=== PATIENT | female | born 1995 | race Caucasian/White ===

== ENCOUNTER 2019-10-16 22:12 | Observation (INO) | payer SELFPAY ==
[~2019-10-16] VITALS: Ht 152.4 cm; Wt 45.4 kg
[2019-10-17 00:20] VITALS: BP 108/65
[2019-10-17] MEDS ORDERED: FERR325E14 PO (00:24)
[2019-10-17] MEDS ORDERED: OSC500 PO (00:24)
== END 2019-10-16 23:30 | disposition left against medical advice (07) ==
LOC: MLD 22:12
PROVIDERS: ADMIT Obstetrics & Gynecology; ATTEND Obstetrics & Gynecology
DX: O62.9 Abnormality of forces of labor, unspecified (principal); Z3A.38 38 weeks gestation of pregnancy
CPT/HCPCS: G0378

== ENCOUNTER 2019-10-21 22:26 | Inpatient (IN) | payer MEDICAID ==
[~2019-10-21] VITALS: Ht 157.5 cm; Wt 45.4 kg
[2019-10-21] MEDS: LACTATED RINGERS 1,000 ML IV SCH (00:19)
[~2019-10-21 22:26] MED LIST: FERR325E14 PO; OSC500 PO
[2019-10-21] MEDS ORDERED: MISOPROSTOL 25 MCG TAB VG SCH (23:10)
[2019-10-21] MEDS ORDERED: PROMETHAZINE 25 MG/ML VIAL IVP PRN (23:10)
[2019-10-21 23:58] LABS: BASOPHILS % (AUTO) 0.2 % (0.0-2.0); EOSINOPHILS # (AUTO) 0.1 K/uL (0-0.4); EOSINOPHILS % (AUTO) 0.9 % (0.0-4.0); HEMOGLOBIN 11.6 g/dL (12.0-16.0); LYMPHOCYTES # (AUTO) 1.2 K/uL (2.5-16.5); LYMPHOCYTES % (AUTO) 18.4 % (20.5-51.1); MEAN CORPUSCULAR HEMOGLOBIN 31 pg (27-31); MEAN CORPUSCULAR HGB CONC 33 g/dL (33-37); MEAN CORPUSCULAR VOLUME 92.9 fL (80-94); MONOCYTES # (AUTO) 0.5 K/uL (0.8-1.0); MONOCYTES % (AUTO) 7.2 % (1.7-9.3); NEUTROPHILS # (AUTO) 4.8 K/uL (1.8-7.7); NEUTROPHILS % (AUTO) 73.3 % (42.2-75.2); PLATELET COUNT (AUTO) 235 K/uL (140-450); RED BLOOD CELL COUNT(AUTO) 3.77 MIL/uL (4.20-5.40); RED CELL DISTRIBUTION WIDTH 14.1 % (11.6-13.7); WHITE BLOOD COUNT (AUTO) 6.5 K/uL (4.8-10.8)
[2019-10-22] MEDS ORDERED: AMPICILLIN 2,000 MG in NACL 0.9% 100 ML IV ONE (00:05)
[2019-10-22] MEDS ORDERED: AMPICILLIN 2,000 MG VIAL ONE (00:06)
[2019-10-22 00:14] LABS: ANION GAP 13.4 (8-16); CARBON DIOXIDE 27.4 mmol/L (21-32); CREATININE 0.6 mg/dL (0.6-1.3); POTASSIUM 3.8 mmol/L (3.5-5.1)
[2019-10-22 00:21] LABS: ALBUMIN 2.6 g/dL (3.4-5.0); TOTAL BILIRUBIN 0.2 mg/dL (0.0-1.0)
[2019-10-22 00:26] LABS: APPEARANCE,URINE SL CLOUDY (CLEAR); BILIRUBIN,URINE NEGATIVE (NEGATIVE); BLOOD, URINE NEGATIVE (NEGATIVE); COLOR,URINE YELLOW (YELLOW); LEUKOCYTE ESTERASE ,URINE 3+ (NEGATIVE); NITRITE, URINE NEGATIVE (NEGATIVE); UGLUCOSE NEGATIVE (NEGATIVE)
[2019-10-22] MEDS ORDERED: MISOPROSTOL 25 MCG TAB ONE (01:43)
[2019-10-22 01:44] LABS: RBC,URINE 0-5 /HPF (0-5)
[2019-10-22 01:45] LABS: WBC,URINE 20-60 /HPF (0-5)
[2019-10-22 01:51] VITALS: BP 114/60
[2019-10-22] MEDS ORDERED: fentaNYL 0.05 MG/ML VIAL ONE ×2 (03:42→05:43)
[2019-10-22] MEDS ORDERED: AMPICILLIN 1,000 MG VIAL ONE ×3 (03:42→11:58)
[2019-10-22] MEDS: fentaNYL 0.05 MG/ML VIAL IVP PRN ×2 (03:44→05:44)
[2019-10-22] MEDS: AMPICILLIN 1,000 MG in NACL 0.9% 50 ML IV SCH ×3 (04:02→12:07)
[2019-10-22] MEDS ORDERED: ROPIVACAINE 0.2%/NS PREMIX 100 ML EPI ONE ×2 (05:02→13:30)
[2019-10-22] MEDS: LACTATED RINGERS 1,000 ML IV SCH (05:23)
[2019-10-22] MEDS ORDERED: ROPIVACAINE 0.2%/NS PREMIX 100 ML EPI SCH (06:50)
--- NOTE | 2019-10-22 08:47 | NUR ---
PATIENT HAS BEEN SCREENED AND CATEGORIZED LOW NUTRITION RISK. PATIENT WILL BE SEEN WITHIN 7 DAYS OF ADMISSION. 10/28/[address]
[2019-10-22] MEDS ORDERED: OXYTOCIN 20 UNITS/LR PREMIX 1,000 ML IV ONE (08:53)
[2019-10-22] MEDS: OXYTOCIN 20 UNITS in LACTATED RINGERS 1,000 ML IV SCH ×3 (09:40→09:57)
[2019-10-22] MEDS ORDERED: TERBUTALINE 1 MG/ML VIAL SUBQ ONE ×2 (15:46→16:00)
[2019-10-22] MEDS ORDERED: SODIUM BICARBONATE 8.4% PFS 50 MEQ/50 ML SYR IVP ONE (16:41)
[2019-10-22] MEDS ORDERED: MORPHINE PRES FREE 10 MG/10 ML AMP IV ONE (16:41)
[2019-10-22] MEDS ORDERED: LIDOCAINE/EPI MPF 2%1:200000 10 ML VIAL INJ ONE (16:41)
[2019-10-22] MEDS ORDERED: ceFAZolin 1,000 MG VIAL ONE (17:04)
[2019-10-22] MEDS ORDERED: NALBUPHINE 10 MG/ML AMP IVP PRN (18:05)
[2019-10-22] MEDS ORDERED: ONDANSETRON 4 MG/2 ML VIAL IVP PRN ×2 (18:05)
[2019-10-22] MEDS ORDERED: CARBOPROST 250 MCG/ML AMP IM PRN (18:05)
[2019-10-22] MEDS ORDERED: KETOROLAC 30 MG/ML VIAL IVP PRN (18:05)
[2019-10-22] MEDS ORDERED: diphenhydrAMINE 50 MG/ML VIAL IVP PRN (18:05)
[2019-10-22] MEDS ORDERED: METHYLERGONOVINE 0.2 MG/ML AMP IM PRN (18:05)
[2019-10-22] MEDS ORDERED: NALOXONE 0.4 MG/ML VIAL IVP PRN ×3 (18:05)
[2019-10-22] MEDS ORDERED: oxyCODONE/APAP 5/325 MG 1 TAB TAB PO PRN (18:05)
[2019-10-22] MEDS ORDERED: ONDANSETRON 4 MG/2 ML VIAL ONE (18:23)
[2019-10-22] MEDS ORDERED: IBUPROFEN 800 MG TAB PO SCH (23:00)
[2019-10-23] MEDS ORDERED: OXYTOCIN 20 UNITS/LR PREMIX 1,000 ML IV ONE (00:57)
[2019-10-23 08:34] LABS: BASOPHILS % (AUTO) 0.1 % (0.0-2.0); HEMATOCRIT 27.1 % (36-48); HEMOGLOBIN 9.2 g/dL (12.0-16.0); LYMPHOCYTES % (AUTO) 8.3 % (20.5-51.1); MEAN CORPUSCULAR HEMOGLOBIN 31 pg (27-31); MEAN CORPUSCULAR HGB CONC 34 g/dL (33-37); MEAN CORPUSCULAR VOLUME 92.9 fL (80-94); MONOCYTES # (AUTO) 0.7 K/uL (0.8-1.0); MONOCYTES % (AUTO) 5.8 % (1.7-9.3); NEUTROPHILS # (AUTO) 10.5 K/uL (1.8-7.7); NEUTROPHILS % (AUTO) 85.8 % (42.2-75.2); PLATELET COUNT (AUTO) 177 K/uL (140-450); RED BLOOD CELL COUNT(AUTO) 2.92 MIL/uL (4.20-5.40); RED CELL DISTRIBUTION WIDTH 13.9 % (11.6-13.7); WHITE BLOOD COUNT (AUTO) 12.2 K/uL (4.8-10.8)
[2019-10-23] MEDS: IBUPROFEN 800 MG TAB PO SCH (16:56)
[2019-10-24] MEDS: IBUPROFEN 800 MG TAB PO SCH ×3 (01:03→18:03)
[2019-10-24 11:56] LABS: APPEARANCE,URINE CLEAR (CLEAR); BILIRUBIN,URINE NEGATIVE (NEGATIVE); BLOOD, URINE 3+ (NEGATIVE); COLOR,URINE YELLOW (YELLOW); LEUKOCYTE ESTERASE ,URINE 1+ (NEGATIVE); NITRITE, URINE NEGATIVE (NEGATIVE); PH,URINE 5.5 (5.0-9.0); UGLUCOSE NEGATIVE (NEGATIVE)
[2019-10-24 12:12] LABS: RBC,URINE 11-20 (MOD) /HPF (0-5)
[2019-10-24] MEDS ORDERED: CAMERA MC ONE (23:13)
[2019-10-25] MEDS: IBUPROFEN 800 MG TAB PO SCH ×2 (00:57→08:38)
== END 2019-10-25 13:15 | disposition home or self-care (01) | DRG 540 ==
LOC: MLD 22:26 → MFCC 10-22 19:13
PROVIDERS: ADMIT Obstetrics & Gynecology; ATTEND Obstetrics & Gynecology
PROC: 10D00Z1 Extraction of Products of Conception, Low, Open Approach (ICD-10-PCS; principal; 2019-10-22 16:15)
DX: O62.1 Secondary uterine inertia (principal); R71.0 Precipitous drop in hematocrit; O76 Abnormality in fetal heart rate and rhythm complicating labor and delivery; Z37.0 Single live birth; Z3A.39 39 weeks gestation of pregnancy
CPT/HCPCS: 36415; 51702; 59200; 76815; 80053; 81001; 85025; 86592; 86886; 86900; 86901; 87086; 87653-90; J0290; J0690; J1885; J2001; J2270; J2405; J2590; J2795; J3010; J3105; J7060; J7120; Q0092